=== PATIENT | female | born 1950 | race Caucasian/White ===

== ENCOUNTER → 2020-04-12 08:58 | Outpatient (CLI) | payer MEDICARE, OTHER, SELFPAY ==
[2020-04-12] MEDS: COVID-19 VACC(MODERNA-1)/PF 100 MCG/0.5 ML VIAL IM (09:07)
== END ==
PROVIDERS: Visit Provider Internal Medicine
DX: Z23 Encounter for immunization (principal)
CPT/HCPCS: 0011A; 91301

== ENCOUNTER → 2020-05-10 08:59 | Outpatient (CLI) | payer MEDICARE, OTHER, SELFPAY ==
[2020-05-10] MEDS: COVID-19 VACC #2, MRNA(MOD) 100 MCG/0.5 ML VIAL IM (09:06)
== END ==
PROVIDERS: Visit Provider Internal Medicine
DX: Z23 Encounter for immunization (principal)
CPT/HCPCS: 0012A; 91301